=== PATIENT | female | born 1990 | race American Indian/Alaskan Native ===

== ENCOUNTER 2018-07-17 12:50 | Emergency (ER) | payer MEDICAID ==
[2018-07-17 13:06] VITALS: BP 123/85; PULSE 85; RESP 16; TEMP 98.3; O2SAT 100
--- NOTE | 2018-07-17 13:53 | ED PDOC ---
Lower Extremity Pain/Injury Time Seen by Provider: 07/17/18 13:40 Chief Complaint (Nursing): Lower Extremity Problem/Injury Chief Complaint (Provider): Left Foot / Ankle Pain History Per: Patient History/Exam Limitations: no limitations Onset/Duration Of Symptoms: Days (x3) Current Symptoms Are (Timing): Still Present Additional Complaint(s): 27 year old female presents to the ED for evaluation of left lateral ankle/foot pain and swelling s/p twisting her ankle while catching herself falling three days ago. Patient reports she is able to ambulate with a steady gait, but is concerned because the pain and swelling have not gone away. Denies taking any medications, hx of ankle/ foot injury, fever, chills, weakness, numbness, paresthesias. PMD: Pavan Olguin Past Medical History Reviewed: Historical Data, Nursing Documentation, Vital Signs Vital Signs: Last Vital Signs Temp 98.3 F 07/17/18 13:02 Pulse 85 07/17/18 13:02 Resp 16 07/17/18 13:02 BP 123/85 07/17/18 13:02 Pulse Ox 100 07/17/18 13:02 - Medical History PMH: No Chronic Diseases Other PMH: varicose veins - Surgical History Surgical History: No Surg Hx - Family History Family History: States: Unknown Family Hx - Social History Current smoker - smoking cessation education provided: No Alcohol: None Drugs: Denies - Immunization History Hx Tetanus Toxoid Vaccination: No Hx Influenza Vaccination: No - Home Medications Home Medications: Ambulatory Orders Medication Instructions Recorded Nitrofurantoin Macrocrystals 100 mg PO BID #14 cap 07/24/16 [Macrobid] - Allergies Allergies/Adverse Reactions: Allergies Allergy/AdvReac Type Severity Reaction Status Date / Time No Known Allergies Allergy Verified 07/17/18 13:02 Review of Systems ROS Statement: Except As Marked, All Systems Reviewed And Found Negative Constitutional: Negative for: Fever, Chills Respiratory: Negative for: Cough, Shortness of Breath Gastrointestinal: Negative for: Nausea, Vomiting, Abdominal Pain Musculoskeletal: Positive for: Leg Pain (left ankle), Foot Pain (and ankle pain, left with swelling). Negative for: Neck Pain, Shoulder Pain, Arm Pain, Back Pain Skin: Negative for: Rash, Bruising Neurological: Negative for: Weakness, Numbness, Headache, Dizziness Physical Exam - Reviewed Nursing Documentation Reviewed: Yes Vital Signs Reviewed: Yes - Physical Exam Appears: Positive for: No Acute Distress Head Exam: Positive for: ATRAUMATIC, NORMOCEPHALIC Skin: Positive for: Normal Color, Warm, Dry Eye Exam: Positive for: Normal appearance Cardiovascular/Chest: Positive for: Regular Rate, Rhythm Respiratory: Positive for: Normal Breath Sounds. Negative for: Respiratory Distress Pulses-Dorsalis Pedis (L): 2+ Pulses-Dorsalis Pedis (R): 2+ Extremity: Positive for: Normal ROM, Tenderness (to left proximal 4th and 5th metatarsals), Capillary Refill (<2s), Swelling (mild over left lateral foot and lateral malleolus). Negative for: Deformity Neurologic/Psych: Positive for: Alert, Oriented (x3), Gait (steady without assistance). Negative for: Motor/Sensory Deficits - ECG O2 Sat by Pulse Oximetry: 100 (RA) Pulse Ox Interpretation: Normal Medical Decision Making Medical Decision Making: Time: 1353 Initial Impression: left foot / ankle pain Initial Plan: --Left ankle XR --Left foot XR --Ibuprofen --Podiatry consult Pt refusing pain medications at this time. 1419 Ankle / Foot XR FINDINGS: BONES: Faint horizontal lucency noted at the distal fibula laterally; nondisplaced fracture cannot be excluded. No acute displaced fracture identified. 5 mm nonspecific sclerotic focus involving the medial distal tibia, possibly bone island. JOINTS: No dislocation. SOFT TISSUES: Mild soft tissue swelling. No evidence of radiopaque foreign body. OTHER FINDINGS: None. IMPRESSION: Mild soft tissue swelling. Faint horizontal lucency noted at the distal fibula laterally; nondisplaced fracture cannot be excluded. Correlate with physical exam. Cross-sectional imaging may be considered. No acute displaced fracture identified. 5 mm nonspecific sclerotic focus involving the medial distal tibia, possibly bone island. 1558 Pt awaiting podiatry consult at bedside. Podiatry resident Beryl Acosta evaluated pt at bedside, placed patient's left ankle in Gomez Compression Splint and advised her to followup at the podiatry clinic in 1-2 weeks. Plan of care discussed with patient, and strict instructions given regarding prescriptions given, importance of follow up, and signs to return to Emergency Department, to include fever, chills, numbness, weakness, worsening pain, or any other new/worsening symptoms. Patient verbalizes understanding of discussion. Patient A&Ox3, ambulating with steady gait, stable for discharge home. Impression: Ankle Pain Plan: * Ibuprofen/Tylenol for pain * Podiatry followup in 1-2 weeks * Followup with primary doctor/clinic within 2 days * Return to ER for new/worsening symptoms Scribe Attestation: Documented by Lurdes Gillespie, acting as a scribe for Suzette Dempsey PA-C Provider Scribe Attestation: All medical record entries made by the Scribe were at my direction and personally dictated by me. I have reviewed the chart and agree that the record accurately reflects my personal performance of the history, physical exam, m edical decision making, and the department course for this patient. I have also personally directed, reviewed, and agree with the discharge instructions and disposition. Disposition - Clinical Impression Clinical Impression: Ankle injury, Ankle pain - Disposition Referrals: Podiatry Clinic [Outside] Disposition Time: 14:30 Condition: IMPROVED Additional Instructions: Tylenol/ibuprofen for pain Keep left ankle in cast until followup Rest, elevate injured ankle Followup with podiatry in 1-2weeks as directed Return to ER for new/worsening symptoms Instructions: Ankle Fracture Forms: [employer] (Hungarian)
--- NOTE | 2018-07-17 14:51 | RAD ---
PROCEDURE: Left ankle radiographs Left foot radiographs HISTORY: trauma r/o fracture COMPARISON: None available FINDINGS: BONES: Faint horizontal lucency noted at the distal fibula laterally; nondisplaced fracture cannot be excluded. No acute displaced fracture identified. 5 mm nonspecific sclerotic focus involving the medial distal tibia, possibly bone island. JOINTS: No dislocation. SOFT TISSUES: Mild soft tissue swelling. No evidence of radiopaque foreign body. OTHER FINDINGS: None. IMPRESSION: Mild soft tissue swelling. Faint horizontal lucency noted at the distal fibula laterally; nondisplaced fracture cannot be excluded. Correlate with physical exam. Cross-sectional imaging may be considered. No acute displaced fracture identified. 5 mm nonspecific sclerotic focus involving the medial distal tibia, possibly bone island.
--- NOTE | 2018-07-17 17:48 | CP.PCM.CON ---
History of Present Illness - History of Present Illness History of Present Illness: Podiatry consult note for Dr. Alex, 27 year old female with no significant past medical history presents to the ED for evaluation of left ankle / foot pain and swelling s/p catching herself while falling three days ago. Patient reports she is able to ambulate with a steady gait, but is concerned because the pain and swelling have not gone away. States her pain in mainly when she slides into her shoe/boot. No pain is noted while a mbulating. Denies taking any medications, hx of ankle/ foot injury, fever, chills, and trouble breathing. PMD: Pavan Olguin Past Patient History - Past Social History Alcohol: None Drugs: Denies - PSYCHIATRIC Hx Psychophysiologic Disorder: No Hx Substance Use: No - SURGICAL HISTORY Hx Surgeries: No - ANESTHESIA Hx Anesthesia: No Meds Allergies/Adverse Reactions: Allergies Allergy/AdvReac Type Severity Reaction Status Date / Time No Known Allergies Allergy Verified 07/17/18 13:02 Physical Exam - Constitutional Appears: Well, Non-toxic, No Acute Distress - Head Exam Head Exam: ATRAUMATIC - Extremities Exam Additional comments: left foot lower extremity exam: vascular: dP/pT 2/4, CFT <3 secs x5, TG warm to cool, minimal edema noted on the lateral aspect of sinus tarsi area, no erythema noted neuro: protective sensation intact via ipswich 4/4 derm: no open lesions, edema noted on the lateral aspect of the sinus tarsi, no clinical signs of infection ortho: pain on palpation tot he sinus tarsi and base of fourth metatarsal. no pain with ROM of the ankle and subtalar joint. - Neurological Exam Neurological exam: Alert, Oriented x3 - Psychiatric Exam Psychiatric exam: Normal Affect - Skin Skin Exam: Normal Color Results - Vital Signs Recent Vital Signs: Last Vital Signs Temp 98.3 F 07/17/18 13:02 Pulse 85 07/17/18 13:02 Resp 16 07/17/18 13:02 BP 123/85 07/17/18 13:02 Pulse Ox 100 07/17/18 16:00 Assessment & Plan - Assessment and Plan (Free Text) Assessment: 27 yo female seen in the ED s/p ankle sprain Plan: Patient seen and evaluated Chart, labs and vitals reviewed; afebrile X-rays reviewed of the foot and ankle: no osseous abnormality consistent with a fracture noted Patient educated on the rice protocol Patient educated on the possible etiology of the pain; stress fracture versus soft tissue injury gibson compression applied to the left lower extremity patient advised to keep the dressing dry/clean/intact patient showed verbal understanding patient to follow up in clinic within 2 weeks Thank you for the consult
== END 2018-07-17 16:55 | disposition home or self-care (01) ==
LOC: H.ER 12:50
DX: S93.402A Sprain of unspecified ligament of left ankle, initial encounter (principal); W19.XXXA Unspecified fall, initial encounter